=== PATIENT | male | born 1965 | race Caucasian/White ===

== ENCOUNTER → 2018-07-07 | Day surgery (SDC) | payer OTHER ==
[2018-07-05 15:14] VITALS: BMI 24.3
[~2018-07-07] MED LIST: LACTATED RINGERS 1,000 ML IV SCH; LIDOCAINE 1% 20 ML VIAL (10MG/ML) FOR IV START INTRADERMA ONE; LIDOCAINE 1% INJ 10MG/ML (20 ML MDV) ONE; PROPOFOL 10 MG/ML 20 ML VIAL IV ONE
[2018-07-07 08:12] VITALS: RESP 16; TEMP 97
--- NOTE | 2018-07-07 09:19 | P.PCN ---
Date of Procedure: 07/07/18 Procedure(s) Performed: Procedure: Total colonoscopy. Preoperative diagnosis: Screening for neoplasia. Postoperative diagnosis: Exam within normal limits. Preparation: HalfLytely prep. Sedation: Was provided by anesthesia. Brief clinical history: The patient is a 53-year-old male who is scheduled for this evaluation for screening for neoplasia age being his risk factor. He had no prior exam. No family history of colon cancer. The patient has no abdominal complaints, bleeding or anemia. Procedure: With the patient on his left lateral decubitus position and after informed consent and adequate sedation, the perianal area was inspected and it did not show any fissures or fistulas. There were no masses felt on digital rectal examination. The Olympus CFH 190L video colonoscope was then inserted in the rectum in the usual fashion and advanced to the cecum. The mucosa appeared healthy. No polyps or tumors were seen or other pathology. No obvious diverticular disease or other pathology. I retroflexed the endoscope in the rectum before the endoscope was withdrawn. The patient tolerated the procedure well. Plan: The patient was reassured. He will follow up with you as planned and I recommended repeat exam in 10 years.
[2018-07-07 09:35] VITALS: BP 119/76; PULSE 65
== END | disposition home or self-care (01) ==
LOC: ORWHC2ENDO 07:49
DX: Z12.11 Encounter for screening for malignant neoplasm of colon (principal); E78.5 Hyperlipidemia, unspecified; K21.9 Gastro-esophageal reflux disease without esophagitis; Z79.899 Other long term (current) drug therapy; Z88.5 Allergy status to narcotic agent; Z87.891 Personal history of nicotine dependence; Z98.1 Arthrodesis status
CPT/HCPCS: J2001; J2704; G0121

== ENCOUNTER → 2023-09-24 | Outpatient (CLI) | payer OTHER | END | disposition home or self-care (01) | LOC: RADUSWWP 06:45 | PROVIDERS: ATTEND Family Medicine | DX: Z53.9 Procedure and treatment not carried out, unspecified reason (principal) ==

== ENCOUNTER → 2023-09-24 | Outpatient (CLI) | payer OTHER ==
--- NOTE | 2023-09-24 09:20 | CTL ---
EXAMINATION TYPE: CT Low Dose Lung DATE OF EXAM: 09/24/2023 7:53 AM CLINICAL INDICATION:Male, 58 years old with history of Z12.2 lung cancer scrn, Z87.891 former smoker; NICOTINE DEPENDENCE OF 1 PPD X 35 YRS, QUIT SMOKING 2017. , history of tobacco use. COMPARISON: None. TECHNIQUE: Multiple axial non-contrast scans were obtained from approximately the lung apices through the upper abdomen. Coronal and sagittal reformatted images were obtained. Low dose technique was uti lized. CT DLP: 83 mGycm, Automated exposure control for dose reduction was used. CT Contrast: Contrast used: None Oral contrast used: None FINDINGS: ======== Lack of intravenous contrast and low dose technique limits the evaluation of the vascular and soft ti ssue structures. LUNGS: No evidence of pulmonary fibrosis. No evidence of focal consolidation, pneumothorax or pleural effusion. Centrilobular emphysema changes. Nodules: RUL: None. RML: None. RLL: None. ROC: None. LLL: None. AIRWAY: Patent and unremarkable. HEART: Size within normal limits. MEDIASTINUM: No gross evidence of adenopathy. VASCULATURE: No aortic aneurysm. MUSCULOSKELETAL: No acute osseous abnormalities SOFT TISSUES/LYMPH NODES: Unremarkable. LOWER NECK: No significant findings. UPPER ABDOMEN: No significant findings. IMPRESSION: 1. No pulmonary nodules. 2. Mild emphysema. CT LUNG RAD AND CT CHEST RECOMMENDATION: Lung-Rad 1 Negative: Continue annual screening with LDCT in 12 months. S Modifier (other clinically significant findings): None Recommend smoking cessation (if current smoker), or continuation of smoking cessation (if prior smoke r). Annual screening for lung cancer with low-dose computed tomography is recommended in adults ages 55 to 77 years who have a 30 pack-year smoking history and currently smoke or have quit within the pa st 15 years. Screening should be discontinued once a person has not smoked for 15 years or develops a health problem that substantially limits life expectancy or the ability or willingness to have curat venita lung surgery. Lung rads 2021 [email or web address]
== END | disposition home or self-care (01) ==
LOC: RADCTMAIN 07:21
PROVIDERS: ATTEND Family Medicine
DX: Z12.2 Encounter for screening for malignant neoplasm of respiratory organs (principal); J43.9 Emphysema, unspecified; F17.210 Nicotine dependence, cigarettes, uncomplicated
CPT/HCPCS: 71271

== ENCOUNTER → 2023-10-06 | Outpatient (CLI) | payer OTHER ==
--- NOTE | 2023-10-06 08:53 | US ---
EXAMINATION TYPE: US Aorta Screening DATE OF EXAM: 10/06/2023 COMPARISON: NONE CLINICAL INDICATION: Male, 58 years old with history of E78.5 HYPERLIPIDEMIA, UNSPECIFIED; screening. TECHNIQUE: Multiple sonographic images of the abdominal aorta are obtained. FINDINGS: EXAM MEASUREMENTS: Abdominal Aorta: Proximal: 2.4 x 2.3 cm Mid: 1.6 x 1.2 cm Distal: 1.4 x 1.6 cm Bifurcation: Right Iliac: 0.8 x 0.8 cm Left Iliac: 0.8 x 0.9 cm PROGRAM ATTENDANT NOTES: IMPRESSION: No evidence for aortic aneurysm.
== END | disposition home or self-care (01) ==
LOC: RADUSWWP 07:44
PROVIDERS: ATTEND Family Medicine
DX: E78.5 Hyperlipidemia, unspecified (principal)
CPT/HCPCS: 76706

== ENCOUNTER → 2024-09-25 | Outpatient (CLI) | payer OTHER ==
--- NOTE | 2024-09-25 07:36 | CTL ---
EXAMINATION TYPE: CT Low Dose Lung DATE OF EXAM: 09/25/2024 6:57 AM COMPARISON: 09/24/2023 CLINICAL INDICATION: Male, 59 years old with history of Z12.2 LUNG CA SCR Z87.891, Former smoker quit 2017 was 1 ppd x 35 years, History of tobacco use. TECHNIQUE: Low dose computed tomography scan was performed through the chest at 1 mm thick sections a nd reconstructed images in multiple planes at 1 mm and [address] DLP: 113.8 mGycm, CT CTDI: 3.2 mGy, Automated exposure control for dose reduction was used. CT DIAGNOSTIC QUALITY: Satisfactory FINDINGS: Heart normal size without pericardial effusion. Mild scattered LAD and circumflex coronary calcificat ions are present. Aorta normal caliber with bovine configuration to the aortic arch. A prominent 1 cm lower left paratracheal lymph node is unchanged. Other scattered nonenlarged mediast inal lymph nodes are also unchanged. No thoracic adenopathy by CT size criteria. Mild emphysematous change. Minimal biapical pleural parenchymal scarring. Mild reticular change in th e lower lungs also appears unchanged, probably relating to some minimal interstitial fibrosis. No con solidation or pleural effusion. 4 mm right middle lobe pulmonary nodule, axial image 186 is unchanged. No new or suspicious pulmonary nodule is seen. Visualized upper abdomen shows no gross abnormalities. Bones: No osseous destructive process. Small endplate Schmorl's nodes mid thoracic spine. IMPRESSION: 1. LungRADS 2, benign. No new or suspicious pulmonary nodule. 2. COPD with mild emphysema. There may be minimal interstitial fibrosis at the lung bases. CT LUNG RAD AND CT CHEST RECOMMENDATION: Lung-Rad 2 Benign Appearance or Behavior: Continue annual sc reening with LDCT in 12 months. S Modifier (other clinically significant findings): None [facility], Workstation: [employer], 09/25/2024 7:34 AM
== END | disposition home or self-care (01) ==
LOC: RADCTMAIN 06:06
PROVIDERS: ATTEND Internal Medicine Pulmonary Disease
DX: Z12.2 Encounter for screening for malignant neoplasm of respiratory organs (principal); J43.9 Emphysema, unspecified; Z87.891 Personal history of nicotine dependence
CPT/HCPCS: 71271